=== PATIENT | male | born 1990 ===

== ENCOUNTER → 2023-07-31 | Outpatient (CLI) | payer OTHER | LOC: M WUC 10:45 | PROVIDERS: ATTEND Nurse Practitioner Family | DX: R05.9 Cough, unspecified (principal) ==

== ENCOUNTER → 2023-08-26 | Outpatient (REF) | payer OTHER | LOC: M LAB REF 16:18 | PROVIDERS: ATTEND Nurse Practitioner Family | DX: L02.511 Cutaneous abscess of right hand (principal) ==